=== PATIENT | female | born 1945 | race Caucasian/White ===

== ENCOUNTER → 2016-10-24 | Outpatient (CLI) | payer OTHER, MEDICARE | END | disposition home or self-care (01) | LOC: LAB.O 09:17 | PROVIDERS: ATTEND Internal Medicine | DX: K74.69 Other cirrhosis of liver (principal) ==

== ENCOUNTER 2017-11-11 00:49 | Emergency (ER) | payer OTHER, MEDICARE ==
[2017-11-11] MEDS ORDERED: SODIUM CHLORIDE 0.9% (FLUSH) 10 ML SYG IV PRN (00:58)
[2017-11-11] MEDS ORDERED: ONDANSETRON INJ 4 MG/2 ML VIAL IV ONE (00:58)
[2017-11-11] MEDS ORDERED: ASPIRIN TABLET 325 MG TAB PO ONE (00:58)
[2017-11-11] MEDS ORDERED: NITROGLYCERIN 0.4 MG 25 EA TAB SL ONE ×2 (00:58)
[2017-11-11] MEDS ORDERED: IPRATROPIUM/ALBUTEROL 3 ML VIAL NEB ONE ×3 (01:05→03:19)
[2017-11-11] MEDS ORDERED: ALUM & MAG HYDROX-SIMETHICONE 30 ML, LIDOCAINE VISCOUS 2% 15 ML PO ONE ×2 (02:27)
[2017-11-11] MEDS ORDERED: LIDOCAINE HCL 2% (MOUTH-THROAT) 15 ML UD ONE (02:30)
[2017-11-11] MEDS ORDERED: ALUM & MAG HYDROX-SIMETHICONE 30 ML UD ONE (02:30)
[2017-11-11] MEDS ORDERED: methylPREDNISolone SODIUM SUC 125 MG/2 ML VIAL IV ONE (03:18)
[2017-11-11] MEDS ORDERED: methylPREDNISolone SODIUM SUC 125 MG/2 ML VIAL ONE (03:19)
--- NOTE | 2017-11-11 03:22 | ED.PDOC ---
History of Present Illness - General Chief Complaint: Cardiovascular Problem Stated Complaint: shortness of breath, chest pain Time Seen by Provider: 11/11/17 01:17 Source: patient, EMS notes reviewed Additional Information: 72 YEAR OLD WHITE FEMALE BROUGHT HERE FROM HOME FOR EVALUATION OF DIFFICULTY BREATHING PRODUCTIVE COUGH BURNING CHEST PAIN AND PAIN ALL OVER THE BODY SHE HAS BEEN SEEN BY MIDLEVEL PROVIDERS HAD GONE THRU 2 COURSES OF ANTIBIOTICS LAST BEING 2 MONTHS AGO SHE HAS CATS BIRDS AND DOGS AT HER HOME SHE HAS NOT EXPERIENCED FEVER CHILLS SHE HAS NOTICED SHE HAS BEEN GETTING SHORT WINDED ON EXERTION BUT NO PAIN NO DIAPHORESIS NO ARM NECK SHOULDER OR BACK PAIN SHE HAS NO CALF PAIN NO RECENT SURGERY NO DVT RISK FACTORS 3 -4 YEARS AGO SHE HAD A CORONARY ANGIOGRAM AT [facility] AND APPARENTLY WAS TOLD HER CORONARY ARTERIES WERE CLEAN SHE USED TO SMOKE SEVERAL YEARS AGO HER MOTHER AT 61 FROM CAD SHE HAS HTN DISLIPIDEMIA HAD SURGERY FOR HIATAL HERNIA AND TAKES NEXIUM - History of Present Illness Timing/Duration: days Activities at Onset: none Prior Chest Pain/Cardiac Workup: no prior chest pain Improving Factors: nothing Worsening Factors: movement Nitro Today/Relief: 0.4 mg x 1 Associated Symptoms: cough, shortness of breath Allergies/Adverse Reactions: Allergies NO KNOWN ALLERGY Allergy (Verified 11/11/17 01:07) Home Medications: Ambulatory Orders Azathioprine [Imuran] 50 mg PO DAILY 11/11/17 Escitalopram [Lexapro] 10 mg PO DAILY 11/11/17 Levothyroxine Sodium 137 mcg PO DAILY 11/11/17 Lisinopril 10 mg PO DAILY 11/11/17 Losartan Potassium & Hydrochlo [Losartan Potassium/Hydroc 100-25 mg] 1 tab PO DAILY 11/11/17 Simvastatin [Simvastatin] 20 mg PO DAILY 11/11/17 Trazodone HCl 50 mg PO BEDTIME 11/11/17 Review of Systems - Review of Systems Constitutional: States: no symptoms reported EENTM: States: no symptoms reported Respiratory: States: see HPI Cardiology: States: see HPI Gastrointestinal/Abdominal: States: no symptoms reported Genitourinary: States: no symptoms reported Skin: States: no symptoms reported Neurological: States: no symptoms reported Endocrine: States: no symptoms reported Hematologic/Lymphatic: States: no symptoms reported Past Medical History (General) - Patient Medical History Hx Seizures: No Hx Stroke: No Hx Dementia: No Hx Asthma: No Hx of COPD: No Hx Cardiac Disorders: Yes Hx Congestive Heart Failure: No Hx Pacemaker: No Hx Hypertension: Yes Hx Thyroid Disease: No Hx Diabetes: No Hx Gastroesophageal Reflux: Yes Hx Renal Disease: No Hx Cancer: No Hx of HIV: No Hx Hepatitis C: No Hx MRSA: No Surgical History: appendectomy, cholecystectomy, tonsillectomy Family Medical History - Family History Mother Family History: Unknown Physical Exam - Physical Exam General Appearance: Alert, No apparent distress Neck: non-tender, full range of motion, supple, normal inspection Respiratory: chest non-tender, lungs clear, decreased breath sounds, rhonchi, wheezing Cardiovascular/Chest: normal peripheral pulses, regular rate, rhythm, no edema, no gallop, no JVD Peripheral Pulses: radial,right: 2+, radial,left: 2+, femoral,right: 2+, femoral ,left: 2+ Gastrointestinal/Abdominal: normal bowel sounds, non tender, soft, no organomegaly Extremity: normal range of motion, non-tender Neurologic: laundry washer II-XII nml as tested, no motor/sensory deficits, alert, normal mood/affect Progress - Progress Progress: 11/11/17 03:26 Laboratory Tests 11/11/17 00:30 WBC 7.7 RBC 3.94 L Hgb 13.4 Hct 39.2 MCV 99.3 H MCH 34.0 H MCHC 34.2 RDW 13.8 Plt Count 278 MPV 8.4 Absolute Neuts (auto) 4.40 Absolute Lymphs (auto) 2.20 Absolute Monos (auto) 0.90 H Absolute Eos (auto) 0.20 Absolute Basos (auto) 0.10 Neutrophils % 57.4 Lymphocytes % 27.9 Monocytes % 11.5 H Eosinophils % 2.1 Basophils % 1.1 PT 10.5 INR 0.900 PTT (SP) 30.3 Sodium 136 Potassium 3.5 L Chloride 103 Carbon Dioxide 24 Anion Gap 12.5 BUN 15 Creatinine 0.76 BUN/Creatinine Ratio 19.7 Random Glucose 121 H Serum Osmolality 274.0 L Calcium 8.7 Magnesium 1.8 Creatine Kinase 84 CK-MB (CK-2) 2.3 CK-MB (CK-2) % Not Reportable Troponin I 0.03 B-Natriuretic Peptide 50.7 - Results/Orders Results/Orders: REPEAT EKG AT 3.22 AM NO CHANGE FROM THE PREVIOUS EKG SUBTLE ST CHANGES IN 111 NOTHING ELSE OF SIGNIFICANCE TO SUGGEST INJURY OR INFARCTION THE SECOND TROPONIN CAME BACK 1.34 PAIN IS COMFORTABLE VITAL SIGNS STABLE SHE HAS INTERMITTENT BURNING PAIN WILL START ON HEPARIN AND TRIDIL DISCUSSED WITH DR HERNANDEZ AT [facility] WHO ACCEPTED THE PATIENT FOR HIGHER LEVEL OF CARE WILL ARRANGE TRANSPORTATION LIN I HAVE EXPLAINED THE PROCESS AND DIAGNOSIS OF NSTEMI WITH DAUGHTER AND THE NEED TO TRANSFER TO A CARDIAC CENTER - EKG/XRAY/CT EKG: Sinus Comments: ST DEPRESSION IN 111 AVF THERE IS A SUBTLE J POINT ELEVATION IN AVL AND V2 Departure - Departure Clinical Impression: Chest pain, NSTEMI, initial episode of care Time of Disposition: : Disposition: Transfer to Hospital Condition: Good Departure Forms: ED Discharge - Pt. Copy Instructions: DI for Chest Pain Home Medications: Ambulatory Orders Azathioprine [Imuran] 50 mg PO DAILY 11/11/17 Escitalopram [Lexapro] 10 mg PO DAILY 11/11/17 Levothyroxine Sodium 137 mcg PO DAILY 11/11/17 Lisinopril 10 mg PO DAILY 11/11/17 Losartan Potassium & Hydrochlo [Losartan Potassium/Hydroc 100-25 mg] 1 tab PO DAILY 11/11/17 Simvastatin [Simvastatin] 20 mg PO DAILY 11/11/17 Trazodone HCl 50 mg PO BEDTIME 11/11/17 Transfer to Outside Facility - Transfer Information Accepting Provider:: DR HERNANDEZ [facility] Accepting Facility: [facility] Reason for Transfer: specialized care not available
[2017-11-11 03:34] VITALS: O2SAT 97
[2017-11-11] MEDS ORDERED: NITROGLYCERIN/D5W IV 250 ML IVS ONE (04:02)
[2017-11-11] MEDS ORDERED: HEPARIN SODIUM (PORCINE) 5,000 U/ML VIAL IV ONE (04:15)
[2017-11-11] MEDS ORDERED: HEPARIN PREMIX 500 ML ONE (04:24)
[2017-11-11] MEDS ORDERED: NITROGLYCERIN/D5W IV 50,000 MCG in PREMIX BOTTLE 1 BOTTLE IVS SCH (04:30)
[2017-11-11] MEDS ORDERED: HEPARIN PREMIX 25,000 UNITS in PREMIX BAG 1 BAG IVS SCH (04:30)
[2017-11-11 04:45] VITALS: BP 159/80
[2017-11-11 04:59] VITALS: TEMP 99.1
--- NOTE | 2017-11-11 08:46 | RAD ---
EXAM: Single view chest. INDICATION: Shortness of breath. COMPARISON: Chest x-ray: None. FINDINGS: Cardiac silhouette: Unremarkable. Julia: Unremarkable. Lobar consolidation: None. Pleural effusion: None. Pneumothorax: None. Other: None. Bones: Unremarkable. Other: None. IMPRESSION: 1. No acute cardiopulmonary process. Electronically signed by: Felix Mcfadden MD 11/11/2017 1:36 AM CDT Workstation: [id number]
== END 2017-11-11 05:13 | disposition short-term general hospital (02) ==
LOC: ER 00:49
DX: I21.4 Non-ST elevation (NSTEMI) myocardial infarction (principal); I10 Essential (primary) hypertension; E78.5 Hyperlipidemia, unspecified; K21.9 Gastro-esophageal reflux disease without esophagitis; Z82.49 Family history of ischemic heart disease and other diseases of the circulatory system
CPT/HCPCS: 36415; 71045; 80048; 82550; 82553; 83880; 84484; 85025; 85610; 85730; 93005; 94640; 94760; J1644; J2930; J7620